=== PATIENT | male | born 1985 | race Caucasian/White ===

== ENCOUNTER 2017-01-17 10:25 | Emergency (ER) | payer OTHER ==
[2017-01-17] MEDS ORDERED: NS 1,000 ML IV ONE (11:13)
[2017-01-17 11:20] LABS: % IMMATURE GRANULYOCYTES 0.2 % (0.0-1.1); ABSOLUTE IMMATURE GRANULOCYTES 0.01 10^3/uL (0.00-0.10); ADD DIFF? NO; ADD MORPH? NO; ADD SCAN? NO; ATYPICAL LYMPHOCYTE FLAG 40 (0-99); FRAGMENT RBC FLAG 0 (0-99); HEMATOCRIT 49.5 % (40.0-51.0); HEMOGLOBIN 16.9 g/dL (13.7-17.5); LEFT SHIFT FLG 0 (0-99); LIPEMIA HEMOLYSIS FLAG 90 (0-99); MEAN CELL HEMOGLOBIN 31.7 pg (27.9-34.1); MEAN CELL HEMOGLOBIN CONCENTR. 34.1 g/dL (32.4-36.7); MEAN CELL VOLUME 92.9 fL (81.5-99.8); MEAN PLATELET VOLUME 9.9 fL (8.7-11.7); PLATELET CLUMPS FLAG 0 (0-99); PLATELET COUNT 169 10^3/uL (150-400); RED BLOOD CELL COUNT 5.33 10^6/uL (4.40-6.38); RED CELL DISTRIBUTION WIDTH 13.4 % (11.5-15.2)
[2017-01-17 11:29] LABS: ALANINE AMINOTRANSFERASE 47 IU/L (21-72); ALBUMIN 4.2 g/dL (3.5-5.0); ALKALINE PHOSPHATASE 95 IU/L (38-126); ANION GAP 15 mEq/L (8-16); ASPARTATE AMINOTRANSFERASE 30 IU/L (17-59); BILIRUBIN,TOTAL 0.5 mg/dL (0.1-1.4); BILIRUBIN-CONJUGATED 0.3 mg/dL (0.0-0.5); BILIRUBIN-UNCONJUGATED 0.2 mg/dL (0.0-1.1); CALCIUM 9.2 mg/dL (8.5-10.4); CARBON DIOXIDE 24 mEq/l (22-31); CHLORIDE 103 mEq/L (97-110); CREATININE 0.7 mg/dL (0.7-1.3); GLOMERULAR FILTRATION RATE > 60; GLUCOSE 119 mg/dL (70-100); SODIUM 142 mEq/L (134-144); TOTAL PROTEIN 7.2 g/dL (6.3-8.2)
[2017-01-17] MEDS ORDERED: IOPAMIDOL (ISOVUE-300) 100 ML BTL ONE (11:37)
--- NOTE | 2017-01-17 12:43 | EDPHY ---
H & P Stated Complaint: blood coming from belly buttom and feeling of a mass, hx umbillical hernia Time Seen by Provider: 01/17/17 10:49 HPI/ROS: CHIEF COMPLAINT: Blood from the umbilicus HISTORY OF PRESENT ILLNESS: 31-year-old male reports that yesterday he noticed a small amount of blood at his umbilicus. He had further bleeding today. He also has pain just superior to the umbilicus. No fevers. No diffuse abdominal pain. No lightheadedness or dizziness. No nausea or vomiting. Patient has had a umbilical hernia repair. No trauma. Reports that the umbilicus was slightly itchy and when he scratched at it he noticed blood. Patient does report having a fever to 102 with a cough and generalized body aches earlier this week. He saw his primary care physician who felt that he had a viral syndrome. The symptoms resolved 2 days ago. REVIEW OF SYSTEMS: Aside from elements discussed in the HPI, a comprehensive 10-point review of systems was reviewed and is negative. PAST MEDICAL HISTORY: Ulcerative colitis, umbilical hernia repair, irritable bowel syndrome. SOCIAL HISTORY: Smoker. VITAL SIGNS Reviewed by me. GENERAL: Well-developed, well-nourished, resting comfortably in no respiratory distress. Swell. HEENT: Benign exam. LUNGS: Occasional wheeze. No rhonchi or rales. CARDIAC: Regular rate and rhythm, no rubs, murmurs or gallops. ABDOMEN: Soft, no right upper quadrant, left upper quadrant, right lower quadrant, or left lower quadrant tenderness. There is mild tenderness just superior to the umbilicus. There is dry blood present at the umbilicus. Expiration of the umbilicus with a Q-tip demonstrates a small amount of blood at the base. I am unable to visualize the base of the umbilicus. No surrounding erythema. No warmth. Nondistended. No guarding or rebound. BACK: No CVA tenderness. EXTREMITIES: No trauma. No edema. Range of motion is normal throughout. NEURO: Alert and oriented, grossly nonfocal. SKIN: Warm and dry, no rash. PSYCHIATRIC: Normal mentation, no agitation. - Personal History Current Tetanus/Diphtheria Vaccine: Yes Current Tetanus Diphtheria and Acellular Pertussis (TDAP): Yes Tetanus Vaccine Date: within 10 years - Medical/Surgical History Hx Asthma: No Hx Chronic Respiratory Disease: No Hx Diabetes: No Hx Cardiac Disease: No Hx Renal Disease: No Hx Cirrhosis: No Hx Alcoholism: Yes Hx HIV/AIDS: No Hx Splenectomy or Spleen Trauma: No Other PMH: pre-diabetes, IBS, ulcerative colitis, ETOH abuse, anxiety, GERD, umbillical hernia sx - Social History Smoking Status: Current every day smoker Constitutional: Initial Vital Signs Temperature (C) 37.1 C 01/17/17 10:51 Heart Rate 88 01/17/17 10:51 Respiratory Rate 20 01/17/17 10:51 Blood Pressure 164/98 H 01/17/17 10:51 O2 Sat (%) 91 L 01/17/17 10:51 O2 Delivery Mode Room Air Allergies/Adverse Reactions: amoxicillin Allergy (Severe, Verified 10/07/15 11:46) Hives Home Medications: Medication Instructions [facility] Medical Decision Making - Diagnostics Imaging Results: Imaging Impressions Abdomen CT 01/17/17 11:14 Impression: 1. Nonspecific enlarged lymph nodes in the pelvis which could be reactive; however, lymphoproliferative disorder or metastases could have a similar appearance. If previous studies are available, I would be happy to compare them. 2. Borderline splenomegaly. 3. Congenital spinal canal narrowing exacerbated by degenerative change with multilevel moderate spinal canal narrowing in the lumbar spine. 4. Additional findings, as above. Findings discussed with Terri Ag MD on January 17, 2017 at 1229 hours. ED Course/Re-evaluation: Patient IV established. Labs including a CBC and chemistries are normal. CT scan was performed to evaluate for abscess or deep wound dehiscence. CT scan is negative for any deep space abscess or hematoma under the umbilicus. Scan is essentially normal with the exception of prominent lymphadenopathy. These results were discussed with the patient. He understands the importance of following up to reassured that his head adenopathy is not changing. At this point I suspect that the bleeding from but like this is most likely local bleeding from either a abrasion, trauma from itching, perhaps a granuloma. Patient was given referral to Dr. Reece Austin for follow-up. He states that he no longer has [employer] insurance and cannot go back to see the surgeon who did his original surgery. He feels comfortable being discharged. He understands reasons to return. Differential Diagnosis: Differential diagnosis considered included but was not limited to subcutaneous hematoma, stitch abscess, granuloma, infection, wound dehiscence, local trauma. - Data Points Laboratory Results: Laboratory Results 01/17/17 10:59 01/17/17 10:59 01/17/17 01/17/17 10:59 10:59 WBC 4.51 10^3/uL 10^3/uL (3.80-9.50) RBC 5.33 10^6/uL 10^6/uL (4.40-6.38) Hgb 16.9 g/dL g/dL (13.7-17.5) Hct 49.5 % % (40.0-51.0) MCV 92.9 fL fL (81.5-99.8) MCH 31.7 pg pg (27.9-34.1) MCHC 34.1 g/dL g/dL (32.4-36.7) RDW 13.4 % % (11.5-15.2) Plt Count 169 10^3/uL 10^3/uL (150-400) MPV 9.9 fL fL (8.7-11.7) Neut % (Auto) 42.1 % % (39.3-74.2) Lymph % (Auto) 38.1 % % (15.0-45.0) Forrest % (Auto) 14.2 % H % (4.5-13.0) Eos % (Auto) 4.7 % % (0.6-7.6) Baso % (Auto) 0.7 % % (0.3-1.7) Nucleat RBC Rel Count 0.0 % % (0.0-0.2) Absolute Neuts (auto) 1.90 10^3/uL 10^3/uL (1.70-6.50) Absolute Lymphs (auto) 1.72 10^3/uL 10^3/uL (1.00-3.00) Absolute Monos (auto) 0.64 10^3/uL 10^3/uL (0.30-0.80) Absolute Eos (auto) 0.21 10^3/uL 10^3/uL (0.03-0.40) Absolute Basos (auto) 0.03 10^3/uL 10^3/uL (0.02-0.10) Absolute Nucleated RBC 0.00 10^3/uL 10^3/uL (0-0.01) Immature Gran % 0.2 % % (0.0-1.1) Immature Gran # 0.01 10^3/uL 10^3/uL (0.00-0.10) Sodium 142 mEq/L mEq/L (134-144) Potassium 4.0 mEq/L mEq/L (3.5-5.2) Chloride 103 mEq/L mEq/L (97-110) Carbon Dioxide 24 mEq/l mEq/l (22-31) Anion Gap 15 mEq/L mEq/L (8-16) BUN 12 mg/dL mg/dL (7-23) Creatinine 0.7 mg/dL mg/dL (0.7-1.3) Estimated GFR > 60 Glucose 119 mg/dL H mg/dL (70-100) Calcium 9.2 mg/dL mg/dL (8.5-10.4) Total Bilirubin 0.5 mg/dL mg/dL (0.1-1.4) Conjugated Bilirubin 0.3 mg/dL mg/dL (0.0-0.5) Unconjugated Bilirubin 0.2 mg/dL mg/dL (0.0-1.1) AST 30 IU/L IU/L (17-59) ALT 47 IU/L IU/L (21-72) Alkaline Phosphatase 95 IU/L IU/L (38-126) Total Protein 7.2 g/dL g/dL (6.3-8.2) Albumin 4.2 g/dL g/dL (3.5-5.0) Lipase 80.0 IU/L IU/L (23-300) Medications Given: Discontinued Medications Sodium Chloride (Ns) 1,000 mls @ 0 mls/hr IV ONCE ONE PRN Reason: Wide Open Stop: 01/17/17 11:14 Last Admin: 01/17/17 11:21 Dose: 1,000 mls Departure - Departure Disposition: Home, Routine, Self-Care Clinical Impression: Umbilical bleeding, Lymphadenopathy, abdominal Condition: Good Instructions: Abdominal Pain (ED) Additional Instructions: There is no evidence on the CAT scan of a blood clot or infection under the area of the umbilicus. I suspect the bleeding may be related to a granuloma, or local skin irritation at the base of the umbilicus. Please follow up with a general surgeon for re-examination within the next several days. Return to the emergency department or seek care urgently if he develops worsening abdominal pain, worsening bleeding, redness developing around the area of the belly button, fevers, or other concerns. Also, the CT scan does show some prominent lymph nodes in the abdomen. You should have a repeat CT scan to ensure that these are not changing or growing within the next 6 months. Please follow up with your primary care physician regarding this issue. Referrals: NONE *PRIMARY CARE P,. [Primary Care Provider] - As per Instructions Reece Austin MD [Medical Doctor] - As per Instructions (Follow up with Dr. Austin for re-evaluation as needed.)
[2017-01-17 13:01] VITALS: BP 151/74; PULSE 89; RESP 18; TEMP 98.1; O2SAT 92
== END 2017-01-17 13:01 | disposition home or self-care (01) ==
LOC: CED 10:25
DX: R58 Hemorrhage, not elsewhere classified (principal); R59.0 Localized enlarged lymph nodes; F17.200 Nicotine dependence, unspecified, uncomplicated
CPT/HCPCS: 74177-PO; 80048-PO; 80076-PO; 83690-PO; 85025-PO; Q9967

== ENCOUNTER 2018-10-04 08:45 | Inpatient (IN) | payer OTHER ==
[2018-12-01] MEDS ORDERED: GABAPENTIN 300 MG CAP PO ONE (05:44)
[2018-12-01] MEDS ORDERED: ACETAMINOPHEN 500 MG TAB PO ONE (05:44)
[2018-12-01] MEDS ORDERED: ceFAZolin 2 GM/DEXTROSE 100 ML IV ONE (05:44)
[2018-12-01] MEDS ORDERED: LR 1,000 ML IV ONE (05:46)
--- NOTE | 2018-12-01 06:44 | PDHPUP ---
History & Physical Update H&P update statement: This history and physical update is based on an assessment of the patient which was completed after admission or registration (within 24 hours), but prior to the surgery/procedure. H&P update: H&P reviewed & patient examined, no change in patient's condition since H&P completed (Consents signed and site marked. All questions answered.)
[2018-12-01] MEDS ORDERED: CHLORHEXIDINE GLUC HIBICLENS 118 ML BTL TP ONE (06:45)
[2018-12-01] MEDS ORDERED: SURGIFLO MATRIX KIT WITH THROMBIN 8 ML TP ONE (06:45)
[2018-12-01] MEDS ORDERED: THROMBIN (BOVINE) 20,000 UNIT VIAL TP ONE (06:45)
[2018-12-01] MEDS ORDERED: BACITRACIN 50,000 UNITS/10 ML SYR IRR ONE (06:46)
[2018-12-01] MEDS ORDERED: IPRATROPIUM/ALBUTEROL 3 ML DEYVIAL IH PRN (06:46)
[2018-12-01] MEDS ORDERED: MIDAZOLAM 2 MG/2 ML VIAL IVP ONE (06:46)
[2018-12-01] MEDS ORDERED: AVITENE POWDER 1 GM JAR TP ONE (06:46)
[2018-12-01] MEDS ORDERED: BUPIVACAINE/EPI 0.25% 30 ML SDV ONE ×2 (06:46→07:44)
--- NOTE | 2018-12-01 06:48 | PDANEPAE ---
ANE Past Medical History - Cardiovascular History Hx Hypertension: No Hx Arrhythmias: No Hx Chest Pain: No Hx Coronary Artery / Peripheral Vascular Disease: No Hx CHF / Valvular Disease: No Hx Palpitations: No - Pulmonary History Hx COPD: No Hx Asthma/Reactive Airway Disease: No Hx Recent Upper Respiratory Infection: No Hx Oxygen in Use at Home: No Hx Sleep Apnea: No Sleep Apnea Screening Result - Last Documented: Negative Pulmonary History Comment: case cancelled in 10/04/18 d/t bronchitis - Neurologic History Hx Cerebrovascular Accident: No Hx Seizures: No Hx Dementia: No Neurologic History Comment: cervical fusion 02/2018 - Endocrine History Hx Diabetes: No - Renal History Hx Renal Disorders: No - Liver History Hx Hepatic Disorders: No - Neurological & Psychiatric Hx Hx Neurological and Psychiatric Disorders: Yes Neurological / Psychiatric History Comment: anxiety - Cancer History Hx Cancer: No - Congenital Disorder History Hx Congenital Disorders: No - GI History Hx Gastrointestinal Disorders: Yes Gastrointestinal History Comment: hx of gerd- no issues currently. patient thinks he might have IBS - Other Health History Other Health History: very dry skin - Chronic Pain History Chronic Pain: Yes (lower back, bilateral legs) - Surgical History Prior Surgeries: cervical fusion with rajpal 03/01/2018. umbilical hernia repair 2014 ANE Review of Systems Review of Systems: - Exercise capacity METS (RN): 4 METS ANE Patient History - Allergies Allergies/Adverse Reactions: amoxicillin Allergy (Verified 11/30/18 11:24) Hives - Home Medications Home medications: home medication list seen and reviewed Home Medications: LORazepam [Ativan (*)] 1 mg PO DAILY PRN 08/31/18 [Last Taken 12/01/18 05:30] - NPO status NPO Status: no food or drink >8 hours NPO Since - Liquids (Date): 12/01/18 NPO Since - Liquids (Time): 05:00 NPO Since - Solids (Date): 11/30/18 NPO Since - Solids (Time): 21:00 - Anes Hx Anes Hx: post operative nausea - Smoking Hx Smoking Status: Current some day smoker - Family Anes Hx Family Hx Anesthesia Complications: none ANE Labs/Vital Signs - Vital Signs Vital Signs: reviewed preoperatively; see RN documention for details Blood Pressure: 157/82 Heart Rate: 81 Respiratory Rate: 18 O2 Sat (%): 90 Height: 187.96 cm Weight: 158.757 kg ANE Physical Exam - Airway Neck exam: FROM Mallampati Score: Class 1 - Pulmonary Pulmonary: clear to auscultation - Cardiovascular Cardiovascular: regular rate and rhythym - ASA Status ASA Status: II ANE Anesthesia Plan Anesthesia Plan: general endotracheal anesthesia
[2018-12-01] MEDS ORDERED: REMIFENTANIL HCL 1 MG VIAL ONE ×5 (06:57→09:58)
[2018-12-01] MEDS ORDERED: PROPOFOL/EMULSION 500 MG/50 ML BOTTLE IV ONE ×3 (06:58→08:42)
[2018-12-01] MEDS ORDERED: fentaNYL 250 MCG/5 ML INJ ONE (06:58)
[2018-12-01] MEDS ORDERED: PROPOFOL 200 MG/20 ML VIAL ONE ×4 (06:58→09:45)
[2018-12-01] MEDS ORDERED: DEXMEDETOMIDINE HCL 400 MCG in NS 100 ML IV ONE (07:00)
[2018-12-01] MEDS ORDERED: SUCCINYLCHOLINE CHLORIDE 200 MG/10 ML SYR IVP ONE (07:00)
[2018-12-01] MEDS ORDERED: ROCURONIUM 50 MG/5 ML VIAL ONE (07:01)
[2018-12-01] MEDS ORDERED: GLYCOPYRROLATE 0.2 MG/1 ML VIAL ONE ×2 (07:01→09:46)
[2018-12-01] MEDS ORDERED: PETROLAT,WHT/MIN OIL/SOD CHL 3.5 GM OPHT.OINT ONE (07:05)
[2018-12-01] MEDS ORDERED: POLYETHYLENE GLYCOL 3350 17 GM PKT PO PRN (07:21)
[2018-12-01] MEDS ORDERED: MAGNESIUM HYDROXIDE 30 ML UDCUP PO PRN (07:21)
[2018-12-01] MEDS ORDERED: BISACODYL 10 MG SUPP PR PRN (07:21)
[2018-12-01] MEDS ORDERED: ONDANSETRON 4 MG/2 ML VIAL IVP PRN ×2 (07:21→10:05)
[2018-12-01] MEDS ORDERED: ONDANSETRON DISINTEGRATING 4 MG TAB PO PRN (07:21)
[2018-12-01] MEDS ORDERED: LACTULOSE 20 GM/30 ML UDCUP PO PRN (07:21)
[2018-12-01] MEDS ORDERED: diphenhydrAMINE 25 MG CAP PO PRN (07:21)
[2018-12-01] MEDS ORDERED: NS 1,000 ML IV SCH (07:30)
[2018-12-01] MEDS ORDERED: ceFAZolin 1 GM VIAL ONE (07:47)
[2018-12-01] MEDS ORDERED: DEXAMETHASONE 4 MG/ML VIAL ONE ×4 (07:50)
[2018-12-01] MEDS ORDERED: PHENYLEPHRINE HCL 100 MCG/ML SYR ONE (09:21)
[2018-12-01] MEDS ORDERED: ONDANSETRON 4 MG/2 ML VIAL ONE (09:45)
[2018-12-01] MEDS ORDERED: METOCLOPRAMIDE 10 MG/2 ML VIAL IVP PRN (10:05)
[2018-12-01] MEDS ORDERED: HYDROmorphONE/DILAUDID 1 MG/ML INJ IVP PRN (10:05)
[2018-12-01] MEDS ORDERED: LR 500 ML IV PRN (10:05)
[2018-12-01] MEDS ORDERED: ALBUTEROL 3 ML DEYVIAL IH PRN (10:05)
[2018-12-01] MEDS ORDERED: PROMETHAZINE HCL 25 MG/ML INJ IVP PRN (10:05)
[2018-12-01] MEDS ORDERED: DIAZEPAM 5 MG/ML 1 ML SYR IVP PRN (10:05)
[2018-12-01] MEDS ORDERED: NALOXONE HCL 0.4 MG/ML INJ IVP PRN (10:05)
[2018-12-01] MEDS ORDERED: DEXAMETHASONE 4 MG/ML VIAL IVP PRN (10:05)
[2018-12-01] MEDS ORDERED: MEPERIDINE 25 MG/0.5 ML AMP IVP PRN (10:05)
--- NOTE | 2018-12-01 11:17 | GOP ---
[f rep st] OPERATIVE REPORT DATE OF OPERATION: 12/01/2018 SURGEON: Walter Hyatt MD ENVIRONMENTAL PROTECTION OFFICER: Dorothea Mir PA-C. ANESTHESIA: General. PREOPERATIVE DIAGNOSIS: 1. L1 through L5 lumbar stenosis. 2. Lower extremity radiculopathy, claudication and weakness. 3. Treatment refractory to nonoperative intervention. 4. Morbid obesity POSTOPERATIVE DIAGNOSIS: same PROCEDURE PERFORMED: 1. Decompressive laminectomy with bilateral medial facetectomies at L1-L2, L2- L3, L3-L4, and L4-L5. 2. Use of intraoperative fluoroscopy, less than one hour physician time. 3. Use of neuromonitoring. 4. Use of the operating microscope. FINDINGS: per imaging SPECIMENS: None. ESTIMATED BLOOD LOSS: 300 mL. INDICATIONS: The patient is a very pleasant gentleman who has been suffering from upper extremity weakness, as well as lower extremity weakness and claudication. He underwent an ACDF by myself several months ago, from which he did quite well and recovered. He has been developing worsening claudication and weakness in his lower extremities. After discussion of the risks, benefits , and treatment alternatives, we decided to proceed forth with the surgery as described above. DESCRIPTION OF PROCEDURE: The patient was brought to the operating theater and underwent general endotracheal anesthesia without complications. He had Venodynes, MARCUS hose, and appropriate lines placed by Anesthesia. He was then put prone on the Danny frame. All bony processes were inspected and padded. The lower lumbar region was then prepped and draped in the usual sterile surgical fashion. A time-out was completed per protocol, and the patient received antibiotics within 1 hour of incision. Using lateral fluoroscopy and a spinal needle, we then picked our entry point to the L1 through L5 levels. This was marked in the midline. The incision was infiltrated with Marcaine with epinephrine. The incision was taken down with the scalpel blade. Using monopolar, the incision was then taken down to midline through the lumbodorsal fascia and a subperiosteal dissection carried to the medial facet joints of L1, L2, L3, L4, and L5. Deep retractors were placed to maintain our exposure. Please note, the dissection was extremely tedious and greater than 50% more difficult than average decompression surgery secondary to the patient's body habitus with a BMI of 45. At this point, the microscope was brought into the field to assist with microscopic dissection to maintain illumination and magnification. Using a combination of rocky tip on the drill bit, Kerrison punches and Leksell rongeur, we completed a decompressive laminectomy with bilateral medial facetectomies at L1-L2, L2-L3, L3-L4, and L4-L5. He had a lot of epidural fat with severe spinal stenosis throughout, and this all appeared well decompressed on manual palpation once we completed the surgical decompressions. We obtained hemostasis with the bipolar and confirmed our decompression with lateral fluoroscopy. The wound was irrigated copiously with bacitracin irrigation and a drain left in the subfascial space. We also left 1 additional drain in the subcutaneous fat. The wound was then closed and dressed sterilely. He was then flipped supine onto the transfer cart, where he was awakened, extubated, and taken to the recovery room in stable condition. There were no complications and no noted changes on neuromonitoring throughout the procedure. COMPLICATIONS: None. /[id number]/MODL MTDD
[2018-12-01] MEDS ORDERED: hydrALAZINE 20 MG/ML VIAL IVP PRN (11:23)
--- NOTE | 2018-12-01 11:24 | POSTANESTH ---
Post Anesthetic Evaluation Cardiovascular Status: Normal, Stable Respiratory Status: Normal, Stable Level of Consciousness/Mental Status: Can Participate in Eval Pain Control: Adequate, Prn Tx Ordered Nausea/Vomiting Control: Adequate, Prn Tx Ordered Complications Possibly Related to Anesthesia: None Noted
--- NOTE | 2018-12-01 11:26 | NEUSURGPN ---
Assessment/Plan: document entered in error Neurosurgery Physical Exam - Vitals, I&O, Labs I and O 11/30/18 12/01/18 12/02/18 05:59 05:59 05:59 Weight 158.757 kg Vital Signs Temp Pulse Resp BP Pulse Ox 36.7 C 81 30 H 159/104 H 96 12/01/18 10:53 12/01/18 06:48 12/01/18 11:16 12/01/18 11:16 12/01/18 11:16 ICD10 Worksheet Patient Problems: Problems Problem Status Onset Lumbar canal stenosis Acute
--- NOTE | 2018-12-01 11:29 | POSTOPPROG ---
Post Op Note Date of Operation: 12/01/18 Surgeon: Walter Hyatt Dandy Tender: DUNIA Mir PAC Anesthesia: GET(General Endotracheal) Pre-op Diagnosis: lumbar stenosis, claudication Post-op Diagnosis: lumbar stenosis, claudication Indication: lumbar stenosis, claudication Procedure: L1-L5 laminectomy Inf/Abcess present in the surg proc area at time of surgery?: No EBL: 50-100 PA Addendum - Addendum .: S: Resting comfortably, low back pain O: NAD A&Ox3 MAEX4 5/5 and equal in BUE and BLE A/P 33y/o male s/p L1-L5 laminectomy -AVE x2 (One superficial and one deep to fascia) -Advance diet as tolerated -PT/OT -Optimize pain management -Please notify NS with any change in neuro/motor exam
[2018-12-01] MEDS ORDERED: fentaNYL 100 MCG/2 ML INJ ONE (11:33)
[2018-12-01] MEDS: fentaNYL 100 MCG/2 ML INJ IVP PRN ×2 (11:38→12:37)
--- NOTE | 2018-12-01 11:43 | PDMN ---
Medical Necessity Medical necessity: MCG: S810 lumbar discectomy, foraminotomy or laminotomy A-1 INPT for multi level req prolonged monitoring OP: Decompressive lami with bilat. medial facetectomies at L1-L2, L2-L3, L3-L4, L4-L5. TERESA FOR CPT 66933, 16770L3, 18535 DONE INPT PER [facility] REF#[id number]
[2018-12-01] MEDS ORDERED: LABETALOL HCL 5 MG/ML 20 ML MDV ONE (11:47)
[2018-12-01] MEDS: LABETALOL HCL 5 MG/ML 20 ML MDV IVP PRN ×2 (11:49→12:35)
[2018-12-01] MEDS: ACETAMINOPHEN 500 MG TAB PO SCH ×2 (15:08→20:03)
[2018-12-01] MEDS: SENNOSIDES/DOCUSATE SODIUM TAB PO SCH ×2 (15:09→20:00)
[2018-12-01] MEDS: METHOCARBAMOL 750 MG TAB PO PRN (15:09)
[2018-12-01] MEDS: ceFAZolin 2 GM/DEXTROSE 100 ML IV SCH ×2 (15:09→22:12)
[2018-12-01] MEDS ORDERED: PHENYLEPHRINE 0.5% NASAL 15 ML SPRAY ONE (15:37)
[2018-12-01] MEDS: FAMOTIDINE 20 MG TAB PO SCH ×2 (15:53→20:00)
[2018-12-01] MEDS: LORazepam 1 MG TAB PO PRN (17:24)
[2018-12-01] MEDS: oxyCODONE IR 5 MG TAB PO PRN (18:09)
[2018-12-02] MEDS: oxyCODONE IR 5 MG TAB PO PRN (05:00)
[2018-12-02] MEDS: ACETAMINOPHEN 500 MG TAB PO SCH ×3 (05:47→21:37)
--- NOTE | 2018-12-02 06:29 | NEUSURGPN ---
Assessment/Plan: DRAFT!!! A/P 33y/o male s/p L1-L5 laminectomy POD1 -AVE x2 (One superficial and one deep to fascia). Superficial drains with high output, will keep this am -DVT prophx: TEDs, SCDs, Lovenox -PT/OT -Optimize pain management -Please notify NS with any change in neuro/motor exam -Discussed with Dr. Hyatt Subjective: low back pain, strength improved Objective: NAD A&Ox3 MAEX4 5/5 and equal in BUE and BLE SLIT Dressing c/d/i AVE drain serosanguineous - Physician Discussed Patient with : [facility] Physical Exam - Vitals, I&O, Labs I and O 12/01/18 12/02/18 12/03/18 05:59 05:59 05:59 Intake Total 2625 Output Total 3730 Balance -1105 Weight 158.757 kg Intake: Oral (ml) 525 IV Intake (ml) 2000 IV Infused (ml) 100 ceFAZolin 2 GM/DEXTROSE 100 100 ml @ 200 mls/hr IV ONCALL ONE Rx#:[id number] Output: Urine (ml) 2975 Urinal 2975 Estimated Blood Loss (ml) 200 AVE Drain Output (ml) 555 Left Back Mehran Corrales 135 Right Back Mehran Corrales 420 Other: Intake Quantity Yes Sufficient Number of Voids Toilet 1 Urinal 1 Vital Signs Temp Pulse Resp BP Pulse Ox 36.8 C 70 16 138/70 H 98 12/02/18 04:43 12/02/18 04:43 12/02/18 04:43 12/02/18 04:43 12/02/18 04:43 ICD10 Worksheet Patient Problems: Problems Problem Status Onset Lumbar canal stenosis Acute - ICD10 Problem Qualifiers (1) Lumbar canal stenosis
[2018-12-02] MEDS: SENNOSIDES/DOCUSATE SODIUM TAB PO SCH ×2 (09:44→20:41)
[2018-12-02] MEDS: METHOCARBAMOL 750 MG TAB PO PRN ×2 (09:45→17:45)
[2018-12-02] MEDS: ENOXAPARIN 40 MG/0.4 ML SYR SC SCH (09:45)
[2018-12-02] MEDS: FAMOTIDINE 20 MG TAB PO SCH ×2 (09:45→20:42)
[2018-12-02] MEDS: LORazepam 1 MG TAB PO PRN (13:46)
--- NOTE | 2018-12-02 14:54 | ASMTCMCOM ---
CM Note CM Note Notes: Pt had planned surgery for lumbar stenosis. Pt to stay with his mother during his recovery. OT rec home, PT rec outpatient. Anticipate pt will d/c when medically stable, no CM d/c needs identified. CM available for changes/needs. D/c plan: Independent Date Signed: 12/02/2018 02:53 PM Electronically Signed By:GOKUL Sinclair
[2018-12-02] MEDS ORDERED: LORazepam 1 MG TAB PO PRN (21:23)
[2018-12-03] MEDS: METHOCARBAMOL 750 MG TAB PO PRN ×2 (03:06→13:03)
[2018-12-03] MEDS: ACETAMINOPHEN 500 MG TAB PO SCH (05:40)
--- NOTE | 2018-12-03 07:29 | NEUSURGPN ---
Date of Surgery: 12/01/18 Post Op Day: 2 Assessment/Plan: A/P 33y/o male s/p L1-L5 laminectomy POD2 -AVE x2 (One superficial and one deep to fascia) -PT/OT -Pain controlled on current regimen -DVT prophx: TEDs, SCDs, Lovenox -Please notify NS with any change in neuro/motor exam -Home later today pending drain output Discussed with Dr. Hyatt Subjective: No lower extremity pain, numbness, tingling. Objective: Awake. Alert. PERRL. EOMI Facial expression symmetrical Muscle strength full at 5/5 Sensation intact - Physician Discussed Patient with : [facility] Physical Exam - Vitals, I&O, Labs I and O 12/02/18 12/03/18 12/04/18 05:59 05:59 05:59 Intake Total 2625 950 400 Output Total 3730 1060 40 Balance -1105 -110 360 Weight 158.757 kg Intake: Oral (ml) 525 950 400 IV Intake (ml) 2000 IV Infused (ml) 100 ceFAZolin 2 GM/DEXTROSE 100 100 ml @ 200 mls/hr IV ONCALL ONE Rx#:[id number] Output: Urine (ml) 2975 750 Urinal 2975 750 Estimated Blood Loss (ml) 200 AVE Drain Output (ml) 555 310 40 Left Back Mehran Corrales 135 70 10 Right Back Mehran Corrales 420 240 30 Other: Intake Quantity Yes Sufficient Number of Voids Toilet 1 1 1 Urinal 1 1 Number of Stools Toilet 1 Vital Signs Temp Pulse Resp BP Pulse Ox 36.9 C 74 18 142/68 H 91 L 12/03/18 03:04 12/03/18 03:04 12/03/18 03:04 12/03/18 03:04 12/03/18 03:04 ICD10 Worksheet Patient Problems: Problems Problem Status Onset Lumbar canal stenosis Acute
[2018-12-03] MEDS: FAMOTIDINE 20 MG TAB PO SCH (08:39)
[2018-12-03] MEDS: SENNOSIDES/DOCUSATE SODIUM TAB PO SCH (08:40)
[2018-12-03] MEDS: ENOXAPARIN 40 MG/0.4 ML SYR SC SCH (08:40)
--- NOTE | 2018-12-03 11:34 | PDHOMEO2F ---
Home Oxygen Face to Face Home Orders: I certify that a physician or a nurse practitioner or physician's medical library assistant has had a [id number] encounter with this patient on the date of this order due to the diagnosis listed, which relates to the primary reason the patient requires home oxygen. Alternative treatments have been tried, or considered, and deemed ineffective. It is anticipated that supplemental oxygen will result in improvement with treatment. Home oxygen qualifying diagnosis: Hypoxia SpO2 on room air (%): 91 Frequency of home oxygen needed: during sleep Home oxygen liters per minute: 3 Home oxygen delivery device: nasal cannula Concentrator: Yes E-tanks for mobility and back up: No I certify that, based on these findings, the home oxygen is medically necessary for this patient for the following length of time. Length of time home oxygen needed: 1 month
[2018-12-03 11:44] VITALS: BP 142/78
[2018-12-20] MEDS ORDERED: RANITIDINE 50 MG/2 ML VIAL ONE (16:07)
[2018-12-20] MEDS ORDERED: METOCLOPRAMIDE 10 MG/2 ML VIAL ONE (16:07)
== END 2018-12-03 13:12 | disposition home or self-care (01) | DRG 519 ==
LOC: F3N 12-01 05:35
PROVIDERS: ADMIT Neurological Surgery; ATTEND Neurological Surgery
PROC: 00NY0ZZ Release Lumbar Spinal Cord, Open Approach (ICD-10-PCS; principal; 2018-12-01 07:15)
DX: M48.062 Spinal stenosis, lumbar region with neurogenic claudication (principal); E66.01 Morbid (severe) obesity due to excess calories; Z68.41 Body mass index [BMI] 40.0-44.9, adult
CPT/HCPCS: 97116-GP; 97161-GP; 97166-GO; 97530-GO; 97530-GP; 97535-GO; J0330; J0690; J1100; J1650; J2250; J2370; J2405; J2704; J2765; J2780; J3010